=== PATIENT | male | born 1990 | race American Indian/Alaskan Native ===

== ENCOUNTER 2021-05-14 16:53 | Emergency (ER) | payer MEDICAID ==
[2021-05-14 17:49] VITALS: BP 125/93
[2021-05-14] MEDS ORDERED: chlorproMAZINE 50 MG/2 ML INJ IM ONE (19:13)
[2021-05-14] MEDS ORDERED: ALUM-MAG HYDROXIDE-SIMETHICONE 200-200-20MG/5ML ORAL LIQD 30 ML PO ONE (19:14)
[2021-05-14] MEDS ORDERED: METOCLOPRAMIDE 10 MG TAB PO ONE (19:15)
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
== END 2021-05-14 21:11 | disposition home or self-care (01) ==
LOC: ED 16:53
DX: R06.6 Hiccough (principal); Z98.890 Other specified postprocedural states; F17.290 Nicotine dependence, other tobacco product, uncomplicated
CPT/HCPCS: 96372; 99282; J3230

== ENCOUNTER 2021-05-26 19:45 | Emergency (ER) | payer MEDICAID ==
[2021-05-26] MEDS ORDERED: chlorproMAZINE 25 MG TAB PO ONE (20:31)
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
[2021-05-26 22:46] VITALS: BP 111/73
== END 2021-05-26 22:44 | disposition home or self-care (01) ==
LOC: ED 19:45
DX: R06.6 Hiccough (principal); F17.200 Nicotine dependence, unspecified, uncomplicated; F10.20 Alcohol dependence, uncomplicated; F12.90 Cannabis use, unspecified, uncomplicated
CPT/HCPCS: 99282; Q0161